=== PATIENT | male | born 1965 | race Caucasian/White ===

== ENCOUNTER 2021-03-27 09:27 | Emergency (ER) | payer OTHER ==
[~2021-03-27] VITALS: Ht 180.3 cm; Wt 115.9 kg
[~2021-03-27 09:27] MED LIST: HCTZ 25MG TAB25 MG PO; NORVASC 10MG10 MG PO; TENORMIN 5050 MG/TAB PO
[2021-03-27 09:44] VITALS: BP 147/83; TEMP 98.2
[2021-03-27] MEDS ORDERED: ZOCOR5 MG PO (10:04)
[2021-03-27 10:40] LABS: BASO % 0.3 % (0.0-2.0); EOS # 0.2 (0.0-0.7); EOS % 2.1 % (0-4.0); GRAN # 6.5 (1.4-6.5); GRAN % 71.7 % (42.2-75.2); HEMATOCRIT 43.5 % (42.0-52.0); HEMOGLOBIN 15.3 g/dl (13.5-18.0); LYMPH # 1.5 (1.2-3.4); LYMPH % 16.2 % (20.0-51.0); MEAN CELL VOLUME 84 fl (80.0-100.0); MEAN CORPUSCULAR HEMOGLOBIN 30 pg (27.0-31.0); MEAN CORPUSCULAR HGB CONC 35 g/dl (33.0-37.0); MEAN PLATELET VOLUME 9.5 fl (7.4-10.4); MONO # 0.9 (0.1-0.6); MONO % 9.4 % (1.7-9.3); PLATELET COUNT 303 K/mm3 (130-400); RED BLOOD COUNT 5.19 M/mm3 (4.20-5.60); REDCELL DISTRIBUTION WIDTH-CV 12.4 % (11.5-14.5)
[2021-03-27 10:52] LABS: ALBUMIN 4.2 gm/dL (3.5-5.0); BILIRUBIN,TOTAL 0.9 mg/dL (0.0-1.0); C-REACTIVE PROTEIN 2.5 mg/dL (0.0-0.9); CALCIUM 9.7 mg/dL (8.4-10.2); CREATININE, serum 0.86 (0.66-1.25); POTASSIUM 3.5 mmol/L (3.4-5.0); TOTAL PROTEIN 7.6 gm/dL (6.4-8.2)
[2021-03-27 11:03] LABS: ERYTHROCYTE SEDIMENTATION RATE 16 mm/hr (0-30)
[2021-03-27] MEDS ORDERED: CLEOCIN HCL300 MG PO ×3 (12:10→15:27)
[2021-03-27 12:35] VITALS: PULSE 58
[2021-03-27 13:20] LABS: TOTAL PROTEIN,SYNOVIAL FLUID 3.2 gm/dL
[2021-03-27 13:21] LABS: GLUCOSE,SYNOVIAL FLUID 60 mg/dL
[2021-03-27 13:34] LABS: SYNOVIAL FLUID COLOR YELLOW
[2021-03-27 13:35] LABS: SYNOVIAL FLUID APPEARANCE CLOUDY
[2021-03-27 13:41] LABS: SYNOVIAL FLUID WBC 8241 /mm3 (200-600)
[2021-03-27 13:43] LABS: SYNOVIAL FL. MONONUCLEAR 31.2 % (0-75); SYNOVIAL FLUID RBC 3000 /mm3 (0-0)
== END 2021-03-27 12:35 | disposition home or self-care (01) ==
LOC: COL.ER 09:27
PROVIDERS: Physician Assistant
DX: S80.811A Abrasion, right lower leg, initial encounter (principal); L08.9 Local infection of the skin and subcutaneous tissue, unspecified; M70.41 Prepatellar bursitis, right knee; I10 Essential (primary) hypertension; Z79.899 Other long term (current) drug therapy; W20.8XXA Other cause of strike by thrown, projected or falling object, initial encounter

== ENCOUNTER → 2024-03-07 | Outpatient (CLI) | payer OTHER ==
[~2024-03-07] MED LIST changes: +CLEOCIN HCL300 MG PO; +ZOCOR5 MG PO
== END ==
LOC: COL.RAD 11:24
DX: M48.56XA Collapsed vertebra, not elsewhere classified, lumbar region, initial encounter for fracture (principal); M47.816 Spondylosis without myelopathy or radiculopathy, lumbar region; M47.817 Spondylosis without myelopathy or radiculopathy, lumbosacral region; M51.36 Other intervertebral disc degeneration, lumbar region; M51.37 Other intervertebral disc degeneration, lumbosacral region; M48.061 Spinal stenosis, lumbar region without neurogenic claudication; M48.07 Spinal stenosis, lumbosacral region